=== PATIENT | female | born 1990 | race Asian ===

== ENCOUNTER 2019-08-29 17:06 | Inpatient (IN) ==
[2019-08-29] MEDS ORDERED: ONDANSETRON 4 MG/2 ML VIAL IV PRN (17:19)
[2019-08-29] MEDS ORDERED: BUTORPHANOL 1 MG/ML VIAL IV PRN (17:19)
[2019-08-29 17:43] LABS: Basophils % 0.2 % (0.0-0.8); Eosinophils # 0.1 10*3/uL (0.0-0.87); Eosinophils % 0.6 % (0.00-10.9); Hematocrit 40.3 VOL% (35.7-47.0); Hemoglobin 13.4 GM/DL (12.0-16.0); Immature Granulocytes % 0.3 %; Immature Granulocytes Absolute 0.04 #; Lymphocytes # 3.3 10*3/uL (1.4-4.0); Mean Corpuscular HGB Conc 33.3 GM/DL (32-36); Mean Corpuscular Volume 92.4 FL (87-102); Mean Platelet Volume 10.7 FL (9.6-12.0); Monocytes % 6.8 % (1.7-12.7); Neutrophils % 66.1 % (38.7-73.9); Platelet Count 237 T/CUMM (130-400); Red Blood Count 4.36 MC/CUMM (3.8-5.5); Red Cell Distribution Width 13.4 % (9.3-17.3); White Blood Count 12.6 T/CUMM (4-12)
[2019-08-29 18:08] LABS: Bilirubin,Total 0.4 MG/DL (0.2-1.0); Calcium 9.8 MG/DL (8.5-10.1); Osmolality,Calculated 269.2 MOS/KG (273-304)
[2019-08-29] MEDS ORDERED: [UNRECOGNIZED DRUG - OTHER] SUBCUT SCH (19:00)
[2019-08-29] MEDS ORDERED: ONDANSETRON 4 MG TABLET PO PRN (19:12)
[2019-08-29] MEDS ORDERED: NON-FORMULARY MEDICATION (Metformin 1,000 MG) PO SCH (21:00)
[2019-08-29] MEDS: PROMETHAZINE 25 MG TABLET PO PRN (22:29)
[2019-08-29] MEDS: LACTATED RINGERS 1,000 ML IV SCH (23:10)
[2019-08-29] MEDS ORDERED: TERBUTALINE 1 MG/1 ML VIAL ONE (23:21)
[2019-08-29] MEDS ORDERED: TERBUTALINE 1 MG/1 ML VIAL SUBCUT ONE (23:41)
[2019-08-30] MEDS ORDERED: OXYTOCIN/LR 20 UNIT/1,000 ML BAG IV SCH (04:30)
[2019-08-30] MEDS: LACTATED RINGERS 1,000 ML IV SCH ×2 (05:09→13:49)
[2019-08-30] MEDS ORDERED: PENICILLIN G POTASSIUM INJ 6,000,000 UNIT in SODIUM CHLORIDE 0.9% 100 ML IV ONE ×2 (06:47→08:30)
[2019-08-30] MEDS ORDERED: [UNRECOGNIZED DRUG - OTHER] SUBCUT SCH (08:00)
[2019-08-30] MEDS ORDERED: INSULIN REGULAR HUMAN SUBCUT SCH (08:00)
[2019-08-30] MEDS: PROMETHAZINE 25 MG TABLET PO PRN (09:32)
[2019-08-30] MEDS ORDERED: FAMOTIDINE 20 MG/2 ML VIAL IV PRN (10:34)
[2019-08-30] MEDS ORDERED: PENICILLIN G POTASSIUM INJ 3,000,000 UNIT in SODIUM CHLORIDE 0.9% 100 ML IV SCH (11:00)
[2019-08-30] MEDS ORDERED: FAMOTIDINE 20 MG/2 ML VIAL IV ONE (13:46)
[2019-08-30] MEDS ORDERED: ceFAZolin 2,000 MG in PREMIX 1 EACH IV ONE (13:46)
[2019-08-30] MEDS ORDERED: CITRIC ACID/SODIUM CITRATE 30 ML UDCUP PO ONE (13:46)
[2019-08-30] MEDS ORDERED: OXYTOCIN/LR 20 UNIT/1,000 ML BAG IV ONE ×2 (13:48→22:07)
[2019-08-30] MEDS ORDERED: MORPHINE 10 MG/10 ML VIAL ONE (16:07)
[2019-08-30] MEDS ORDERED: BUPIVACAINE SPINAL 0.75% 2 ML AMP SPINAL ONE (16:07)
[2019-08-30] MEDS ORDERED: PHENYLEPHRINE 1 MG/10 ML SYRINGE IV ONE (16:08)
[2019-08-30] MEDS ORDERED: DEXAMETHASONE 4 MG/1 ML VIAL ONE (16:08)
[2019-08-30] MEDS ORDERED: BUPIVACAINE MPF 0.25% 30 ML VIAL ONE (16:08)
[2019-08-30] MEDS ORDERED: ONDANSETRON 4 MG/2 ML VIAL ONE (16:08)
[2019-08-30] MEDS ORDERED: LACTATED RINGERS 1,000 ML IV ONE (16:08)
[2019-08-30 16:53] LABS: Amorphous Crystals,Urine Occasional /HPF (Few); Apearance,Urine CLOUDY (Clear); Bilirubin,Urine Negative (Negative); Blood, Urine Negative (Negative); Glucose,Urine (UA) Negative (Negative); Ketones,Urine 5 mg/dL (Negative); Mucus,Urine Occasional /LPF (Occasional); Nitrite,Urine Negative (Negative); Protein,Urine Negative; Squamous Epithelial Cell,Urine Occasional /HPF (0-10); Urine Color Yellow (Yellow); Urine Specific Gravity 1.016 (1.001-1.035); Urine Urobilinogen < 2.0 EU/DL (0.2-1.0)
[2019-08-30] MEDS: INSULIN REGULAR 100 UNIT/ML SUBCUT SCH (21:16)
[2019-08-30] MEDS ORDERED: DEXTROSE 50% 25 GM/50 ML SYRINGE IV PRN (22:07)
[2019-08-30] MEDS ORDERED: ACETAMINOPHEN 325 MG TABLET PO PRN (22:07)
[2019-08-30] MEDS ORDERED: INSULIN REGULAR 100 UNIT/ML SUBCUT SCH (22:07)
[2019-08-30] MEDS ORDERED: SIMETHICONE CHEW 80 MG TABLET PO PRN (22:07)
[2019-08-30] MEDS ORDERED: MAGNESIUM HYDROXIDE SUSP 30 ML UDCUP PO PRN (22:07)
[2019-08-30] MEDS ORDERED: RHO(D) IMMUNE GLOBULIN 300 MCG SYRINGE IM ONE (22:07)
[2019-08-30] MEDS ORDERED: GLUCAGON 1 MG VIAL IM PRN (22:07)
[2019-08-30] MEDS ORDERED: diphenhydrAMINE 50 MG/1 ML VIAL IV PRN (22:25)
[2019-08-30] MEDS: DOCUSATE SODIUM 100 MG CAPSULE PO SCH (22:48)
[2019-08-30] MEDS: KETOROLAC 30 MG/1 ML VIAL IV SCH (23:06)
[2019-08-31] MEDS ORDERED: HydrOXYzine PAMOATE 25 MG CAPSULE PO PRN (03:14)
[2019-08-31] MEDS: KETOROLAC 30 MG/1 ML VIAL IV SCH ×2 (05:52→11:22)
[2019-08-31 06:07] LABS: Basophils % 0.3 % (0.0-0.8); Eosinophils % 0.1 % (0.00-10.9); Hematocrit 22.6 VOL% (35.7-47.0); Hemoglobin 7.4 GM/DL (12.0-16.0); Immature Granulocytes % 0.3 %; Immature Granulocytes Absolute 0.04 #; Lymphocytes # 3.8 10*3/uL (1.4-4.0); Lymphocytes % 28.4 % (21.3-54.2); Mean Corpuscular HGB Conc 32.7 GM/DL (32-36); Mean Corpuscular Volume 95.8 FL (87-102); Mean Platelet Volume 11.4 FL (9.6-12.0); Monocytes % 8.6 % (1.7-12.7); Neutrophils % 62.3 % (38.7-73.9); Platelet Count 177 T/CUMM (130-400); Red Blood Count 2.36 MC/CUMM (3.8-5.5); Red Cell Distribution Width 13.6 % (9.3-17.3); White Blood Count 13.4 T/CUMM (4-12)
[2019-08-31] MEDS: INSULIN REGULAR 100 UNIT/ML SUBCUT SCH ×4 (07:30→20:59)
[2019-08-31] MEDS ORDERED: DEXTROSE 10% 250 ML BAG IV PRN (07:42)
[2019-08-31] MEDS ORDERED: GLUCAGON 1 MG VIAL IM PRN (07:42)
[2019-08-31 07:46] LABS: Hematocrit 23.8 VOL% (35.7-47.0); Hemoglobin 7.8 GM/DL (12.0-16.0)
[2019-08-31] MEDS: MULTIVITAMIN (PRENATAL) TABLET PO SCH (09:12)
[2019-08-31] MEDS: DOCUSATE SODIUM 100 MG CAPSULE PO SCH ×2 (09:12→20:11)
[2019-08-31] MEDS: metFORMIN 500 MG TABLET PO SCH ×2 (09:13→16:38)
[2019-08-31] MEDS: FERROUS SULFATE 325 MG TABLET PO SCH ×3 (09:13→20:11)
[2019-08-31] MEDS ORDERED: KETOROLAC 30 MG/1 ML VIAL IV SCH (11:30)
[2019-08-31] MEDS ORDERED: diphenhydrAMINE CAP 25 MG CAPSULE ONE (11:54)
[2019-08-31] MEDS ORDERED: diphenhydrAMINE CAP 25 MG CAPSULE PO PRN (11:56)
[2019-08-31] MEDS: IBUPROFEN 800 MG TABLET PO SCH (21:00)
[2019-09-01] MEDS: IBUPROFEN 800 MG TABLET PO SCH ×3 (05:41→20:39)
[2019-09-01] MEDS: INSULIN REGULAR 100 UNIT/ML SUBCUT SCH ×4 (07:30→20:40)
[2019-09-01] MEDS: FERROUS SULFATE 325 MG TABLET PO SCH ×3 (08:02→20:39)
[2019-09-01] MEDS: metFORMIN 500 MG TABLET PO SCH ×2 (08:02→16:57)
[2019-09-01] MEDS: MULTIVITAMIN (PRENATAL) TABLET PO SCH (08:02)
[2019-09-01] MEDS: DOCUSATE SODIUM 100 MG CAPSULE PO SCH ×2 (08:02→20:39)
[2019-09-02] MEDS: IBUPROFEN 800 MG TABLET PO SCH ×2 (04:43→13:43)
[2019-09-02] MEDS: metFORMIN 500 MG TABLET PO SCH (08:10)
[2019-09-02 09:27] VITALS: BP 100/56
[2019-09-02] MEDS: INSULIN REGULAR 100 UNIT/ML SUBCUT SCH ×2 (09:58→13:43)
[2019-09-02] MEDS: MULTIVITAMIN (PRENATAL) TABLET PO SCH (10:16)
[2019-09-02] MEDS: DOCUSATE SODIUM 100 MG CAPSULE PO SCH (10:16)
[2019-09-02] MEDS: FERROUS SULFATE 325 MG TABLET PO SCH (10:16)
== END 2019-09-02 13:40 | disposition home or self-care (01) | DRG 788 ==
LOC: N.LDOUT 17:06 → N.LD 17:08 → N.OB 08-30 22:07
PROVIDERS: ADMIT Obstetrics & Gynecology; ATTEND Obstetrics & Gynecology
PROC: LDCSECT (ICD-10-PCS; 2019-08-30 14:00)